=== PATIENT | female | born 1945 | race Caucasian/White ===

== ENCOUNTER 2024-07-14 09:55 | Outpatient (OUT) | payer MEDICARE, SELFPAY ==
--- NOTE | 2024-07-14 10:06 | XR_ITS ---
[facility] [place] [id number] Patient Name: LUANNE ALLRED MRN: [id number] date: 1945 Sex: F Assigned Patient Location: [facility] Current Patient Location: [facility] Accession/Order Number: [id number] Exam Date: 07/14/2024 10:43 Report Date: 07/14/2024 10:47 At the request of: SMITA HOLLIDAY DPShabbir Procedure: XR foot LT min 3V LEFT FOOT - 3 views CLINICAL DATA: Left foot pain and dorsal lump for the past month. COMPARISON: None Weightbearing AP, lateral and oblique views were obtained. A marker was placed at the site of patient's lump. The bony structures are osteopenic. There is no acute fracture or dislocation. There is minor periosteal reaction along the distal shaft of the second metatarsal. There is joint space narrowing and hypertrophy at the first metatarsal phalangeal joint. This is in the vicinity of the marker on the lateral view. Calcaneal spurs are seen. XR/XR foot LT min 3V IMPRESSION: OSTEOPENIA AND DEGENERATIVE CHANGES, DESCRIBED. NO ACUTE BONY FINDINGS. Impression dictated by: Laurence Ibrahim M.D. 07/14/2024 10:47 AM Dictation Location: [place] [address] Electronically authenticated by: [id number] Y Date: 07/14/2024 10:47
== END 2024-07-14 09:56 | disposition home or self-care (01) ==
LOC: RAD 10:01
PROVIDERS: Visit Provider Podiatrist Foot & Ankle Surgery
DX: M79.672 Pain in left foot (principal); M85.872 Other specified disorders of bone density and structure, left ankle and foot
CPT/HCPCS: 73630